=== PATIENT | female | born 1975 | race Caucasian/White ===

== ENCOUNTER 2016-12-18 21:29 | Emergency (ER) | payer OTHER ==
[~2016-12-18] VITALS: Ht 162.6 cm; Wt 62.6 kg
[2016-12-18] MEDS ORDERED: Haloperidol 5mg/ml Inj IM ONE (21:45)
[2016-12-18 21:55] VITALS: BP 118/67
[2016-12-18 23:55] VITALS: BP 128/62
--- NOTE | 2016-12-19 01:23 | Emergency Room Report ---
History of Present Illness General Chief Complaint: Substance Abuse Source: Patient, EMS Present Illness HPI Is a 41-year-old female who initially came in as a [facility]. She was been agitated at a nearby [employer]. She was throwing drinks around. 911 was called. Patient said that she does not use drugs anymore. Denies any fever chills or denies any nausea vomiting. She was very agitated here initially. Now she's calm able to give a history. Would not tell what kind of drugs she was using. Does admit to alcohol also. Denies suicidal thought or homicidal thought. Allergies: Coded Allergies: BUSPIRONE (Verified Allergy, Unknown, 12/18/16) NAPROXEN (Verified Allergy, Unknown, 12/18/16) SULFA (SULFONAMIDE ANTIBIOTICS) (Verified Allergy, Unknown, 12/18/16) Patient History Past Medical History: see triage record, old chart reviewed, psych hx Past Surgical History: other Family History: none Social History: drug use Last Menstrual Period: n/a Now: No Immunizations: other Reviewed Nursing Documentation: PMH: Agreed, PSxH: Agreed Nursing Documentation-PMH Past Medical History: No History, Except For Hx Neurological Problems: Yes - fibromylagia, bipolar, anxiety Review of Systems ENT: Denies: sore throat Cardiovascular: Denies: chest pain, palpitations Gastrointestinal/Abdominal: Denies: diarrhea, nausea, vomiting Musculoskeletal: Denies: back problems Skin: Denies: rash Neurological: Denies: [place], seizures All Other Systems: negative except mentioned in HPI Physical Exam Vital Signs Date Time Temp Pulse Resp B/P Pulse Ox O2 Delivery O2 Flow Rate FiO2 12/18/16 21:44 97.5 100 16 118/67 99 Room Air vitals normal. Sp02 EP Interpretation: reviewed, normal General Appearance: alert/responsive, no apparent distress, non-toxic Head: normocephalic, atraumatic Eyes: PERRL, EOMI ENT: oropharynx normal Neck: supple/symm/no masses Respiratory: effort normal, no rhonchi, no wheezing Cardiovascular: no murmur, gallop, rub Gastrointestinal: non-tender, no mass, non-distended, no rebound/guarding, normal bowel sounds Musculoskeletal: gait & station normal Neurologic: oriented x3, sensory intact, motor strength/tone normal Psychiatric: anxious, other - Agitated Skin: no rash, normal palpation Medical Decision Making Diagnostic Impression: Primary Impression: Substance abuse Additional Impression: Psychosis Qualified Codes: F23 - Brief psychotic disorder ER Course Patient presents with acute psychosis secondary to drug abuse. After Haldol she 's calm. Denies suicidal thought homicidal thought. Denies any other complaint. Does have a history of drug and alcohol abuse. Does have a history of psychiatric issue. She is at baseline. I see no criteria for 5150. This patient is a chronic risk of self injury due to poor impulse control, limited coping skills, and judgment intermittently impaired by intoxication. I believe that the available clinical evidence to suggest that these characteristics derived primarily from personality disorder and are likely very stable over time. Hospitalization would likely attenuate risk of self-harm only during alf period, without lasting risk reduction. Serious self-harm , while possible, would likely be inadvertent, and because of impulsivity, and foreseeable. For these reasons, I do not believe hospitalization would provide meaningful reduction in risk of self-harm. Last Vital Signs Date Time Temp Pulse Resp B/P Pulse Ox O2 Delivery O2 Flow Rate FiO2 12/18/16 21:44 97.5 100 16 118/67 99 Room Air Status: improved Disposition: HOME, SELF-CARE Condition: Stable Referrals: [facility]ERR[facility] (PCP) Patient Instructions: Substance Use Disorder Additional Instructions: Stop taking drugs and alcohol. Followup with mental health in 7 days. Return if worse. GIORGIO WEN M.D. Dec 19, 2016 01:23
[2016-12-19 01:55] VITALS: BP 135/70
[2016-12-19 03:30] VITALS: BP 125/70
== END 2016-12-19 03:30 | disposition home or self-care (01) ==
LOC: EDBD 21:29 → EMR 22:20
DX: F19.10 Other psychoactive substance abuse, uncomplicated (principal); F23 Brief psychotic disorder; F31.9 Bipolar disorder, unspecified; F41.9 Anxiety disorder, unspecified; M79.7 Fibromyalgia
CPT/HCPCS: 96372; 99283; J1630

== ENCOUNTER 2017-04-27 19:47 | Emergency (ER) | payer OTHER ==
[~2017-04-27] VITALS: Ht 162.6 cm; Wt 61.2 kg
[2017-04-27 19:59] VITALS: BP 163/76
[2017-04-27] MEDS ORDERED: TYLENOL EXTRA500 MG ORAL (20:10)
[2017-04-27] MEDS ORDERED: Bacitracin Oint UD TOPIC ONE (20:15)
[2017-04-27 20:30] VITALS: BP 163/76
--- NOTE | 2017-04-27 20:40 | Emergency Room Report ---
History of Present Illness General Chief Complaint: Medical Clearance Source: Patient Present Illness HPI The patient is a 41-year-old female presenting for medical clearance for incarceration. The patient is complaining of hand and foot pain which began today. She denies any injury to these areas. She states that she has a history of fibromyalgia. She states that she usually uses [place] for pain. Pain is a 10/10 and sharp sensation and does not radiate. Worse with touch and movement. She denies other symptoms including nausea, vomiting, fever, chills, chest pain, shortness of breath. Allergies: Coded Allergies: BUSPIRONE (Verified Allergy, Unknown, 12/18/16) NAPROXEN (Verified Allergy, Unknown, 12/18/16) SULFA (SULFONAMIDE ANTIBIOTICS) (Verified Allergy, Unknown, 12/18/16) Patient History Past Medical History: see triage record Pertinent Family History: none Social History: Reports: drug use Last Menstrual Period: none Now: No : 0 Para: 0 Reviewed Nursing Documentation: PMH: Agreed, PSxH: Agreed Nursing Documentation-PMH Hx Neurological Problems: Yes - fibromylagia, bipolar, anxiety Review of Systems All Other Systems: negative except mentioned in HPI Physical Exam Vital Signs Date Time Temp Pulse Resp B/P (MAP) Pulse Ox O2 Delivery O2 Flow Rate FiO2 04/27/17 19:50 98.1 111 15 163/76 98 Room Air Sp02 EP Interpretation: reviewed, normal General Appearance: no apparent distress, alert, GCS 15, non-toxic Head: normocephalic, atraumatic Eyes: bilateral eye normal inspection, bilateral eye PERRL ENT: hearing grossly normal, normal pharynx, no angioedema, normal voice Neck: full range of motion, supple/symm/no masses Respiratory: chest non-tender, lungs clear, normal breath sounds, speaking full sentences Cardiovascular #1: regular rate, rhythm, no edema Musculoskeletal: normal inspection, back normal, gait/station normal, normal range of motion Neurologic: alert, oriented x3, responsive, motor strength/tone normal, sensory intact, speech normal Psychiatric: judgement/insight normal, memory normal, mood/affect normal, no suicidal/homicidal ideation Skin: abrasions - R 5th toe Lymphatic: no adenopathy Medical Decision Making PA Attestation Dr. Ji is my supervising physician. Patient management was discussed with my supervising physician Diagnostic Impression: Primary Impression: Foot abrasion Qualified Codes: S90.811A - Abrasion, right foot, initial encounter ER Course The patient is a 41-year-old female presenting for medical clearance for incarceration. Ddx considered include but not limited to fibromyalgia, abrasion, laceration, sprain/strain, fracture, contusion, malingering PE: NAD The patient is in custody. Hands: Full active range of motion is intact. Sensation is intact to light touch. Cap refill less than 2 seconds. Skin is warm and dry. No deformity Feet: Full active range of motion is intact. Sensation is intact. Cap refill less than 2 seconds. There is an abrasion over the right fifth toe. No deformity. No edema or ecchymosis. The wound is cleaned and bacitracin was applied with a dressing. The patient is given Tylenol and will be discharged. ER precautions given Last Vital Signs Date Time Temp Pulse Resp B/P (MAP) Pulse Ox O2 Delivery O2 Flow Rate FiO2 04/27/17 20:30 98.1 15 163/76 98 Room Air 04/27/17 19:50 111 Status: unchanged Disposition: D/C TO [facility] Condition: Improved Scripts Acetaminophen* (TYLENOL EXTRA STRENGTH*) 500 Mg Tablet 500 MG ORAL Q8H Y for Prn Headache/Temp > 101, #30 TAB 0 Refills Prov: MADDY SHORT 04/27/17 Departure Forms: Retirement Clearance Patient Instructions: Abrasion Additional Instructions: I discussed my findings with the patient. All questions and concerns have been answered. Treatment and medication compliance have been addressed. Patient verbalized understanding of discharge instructions. MADDY SHORT Apr 27, 2017 20:40
== END 2017-04-27 20:30 ==
LOC: EMR 20:05
DX: S90.811A Abrasion, right foot, initial encounter (principal); X58.XXXA Exposure to other specified factors, initial encounter; Y92.89 Other specified places as the place of occurrence of the external cause; Z88.2 Allergy status to sulfonamides; Z88.6 Allergy status to analgesic agent; M79.7 Fibromyalgia; F41.9 Anxiety disorder, unspecified; F31.9 Bipolar disorder, unspecified
CPT/HCPCS: 99283